=== PATIENT | female | born 1995 | race Caucasian/White ===

== ENCOUNTER 2021-03-31 11:43 | Inpatient (IN) | payer BC ==
[2021-03-31] MEDS ORDERED: TERBUTALINE 1 MG/ML VIAL SQ PRN (12:26)
[2021-03-31] MEDS ORDERED: METHYLERGONOVINE 0.2 MG/ML 1 ML AMP IM PRN (12:26)
[2021-03-31] MEDS ORDERED: OXYTOCIN 10 UNIT/ML 1 ML VIAL IM PRN (12:26)
[2021-03-31] MEDS ORDERED: LIDOCAINE 1% (PF) 10 MG/ML (30 ML SDV) SQ PRN (12:26)
[2021-03-31] MEDS ORDERED: CARBOPROST TROMETHAMINE 250 MCG/ML 1 ML AMP IM PRN (12:26)
[2021-03-31] MEDS ORDERED: LACTATED RINGERS 1,000 ML IV SCH (12:30)
[2021-03-31] MEDS ORDERED: OXYTOCIN 30 UNITS/500 ML NS 30 UNIT in SALINE 1 500ML.BAG IV SCH (12:30)
[2021-03-31] MEDS: LACTATED RINGERS 1,000 ML IV SCH ×3 (12:46→22:26)
[2021-03-31 12:59] LABS: Basophils % (A) 0 %; Eosinophils # (A) 0.1 k/uL (0-0.7); Eosinophils % (A) 1 %; HCT 41.9 % (34.0-46.0); HGB 14.5 gm/dL (11.4-16.0); Lymphocytes # (A) 1.4 k/uL (1.0-4.8); Lymphocytes % (A) 14 %; MCH 30.6 pg (25.0-35.0); MCHC 34.5 g/dL (31.0-37.0); MCV 88.8 fL (80.0-100.0); Mean Platelet Volume 9.2; Monocytes # (A) 0.4 k/uL (0-1.0); Monocytes % (A) 4 %; Neutrophils # (A) 8.1 k/uL (1.3-7.7); Neutrophils % (A) 80 %; Platelet Count 221 k/uL (150-450); RBC 4.72 m/uL (3.80-5.40); RDW 13.2 % (11.5-15.5); WBC 10.2 k/uL (3.8-10.6)
[2021-03-31] MEDS ORDERED: BUTORPHANOL 1 MG/ML 1 ML VIAL IV PRN (13:57)
[2021-03-31] MEDS ORDERED: AMPICILLIN 2,000 MG in SODIUM CHLORIDE 0.9% 100 ML IVPB STA (19:28)
[2021-03-31] MEDS ORDERED: ROPIVACAINE 100 MG, fentaNYL (PF). 200 MCG in SODIUM CHLORIDE 0.9% 76 ML EPIDURAL ONE (22:26)
[2021-04-01] MEDS ORDERED: AMPICILLIN 1,000 MG in SODIUM CHLORIDE 0.9% 50 ML IVPB SCH ×2
[2021-04-01] MEDS ORDERED: ZOLPIDEM 5 MG TAB PO PRN (00:24)
[2021-04-01] MEDS ORDERED: diphenhydrAMINE 50 MG/ML 1 ML VIAL IVP PRN ×2 (00:24)
[2021-04-01] MEDS ORDERED: SIMETHICONE 80 MG CHEWABLE PO PRN (00:24)
[2021-04-01] MEDS ORDERED: HYDROCORTISONE 2.5% RECTAL CREAM 30 GM TUBE RECTAL PRN (00:24)
[2021-04-01] MEDS ORDERED: diphenhydrAMINE 25 MG CAP PO PRN (00:24)
[2021-04-01] MEDS ORDERED: diphenhydrAMINE 50 MG CAP PO PRN (00:24)
[2021-04-01] MEDS ORDERED: LANOLIN CREAM 5 GM TUBE TOPICAL PRN (00:24)
[2021-04-01] MEDS ORDERED: BENZOCAINE/MENTHOL SPRAY 1 GM/SPRAY AEROSOL TOPICAL PRN (00:24)
--- NOTE | 2021-04-01 00:27 | P.HPOB ---
History of Present Illness H&P Date: 03/31/21 Chief Complaint: SROM 25-year-old presents at 37 weeks and 3 days with spontaneous rupture membranes at 8 AM. When she presented her cervix was 1 cm dilated, 70% effaced and -2 station. She is ayan irregularly. heart tones 130 with moderate variability and reactive. Review of Systems All systems: negative Constitutional: Denies chills, Denies fever Eyes: denies blurred vision, denies pain Ears, nose, mouth and throat: Denies headache, Denies sore throat Cardiovascular: Denies chest pain, Denies shortness of breath Respiratory: Denies cough Gastrointestinal: Denies abdominal pain, Denies diarrhea, Denies nausea, Denies vomiting Genitourinary: Denies dysuria, Denies hematuria Musculoskeletal: Denies myalgias Integumentary: Denies pruritus, Denies rash Neurological: Denies numbness, Denies weakness Psychiatric: Denies anxiety, Denies depression Endocrine: Denies fatigue, Denies weight change Past Medical History Past Medical History: No Reported History History of Any Multi-Drug Resistant Organisms: None Reported Past Surgical History: No Surgical Hx Reported Past Anesthesia/Blood Transfusion Reactions: No Reported Reaction Past Psychological History: No Psychological Hx Reported Smoking Status: Never smoker Past Alcohol Use History: None Reported Past Drug Use History: None Reported - Past Family History Mother Family Medical History: No Reported History Medications and Allergies Home Medications Medication Instructions Recorded Confirmed Type Cetirizine HCl [Zyrtec] 10 mg PO DAILY 03/31/21 03/31/21 History Pnv,Calcium 72/Iron/Folic Acid 1 each PO DAILY 03/31/21 03/31/21 History [ Plus Tablet] Allergies Allergy/AdvReac Type Severity Reaction Status Date / Time No Known Allergies Allergy Verified 03/31/21 12:25 Exam Osteopathic Statement: *. No significant issues noted on an osteopathic structural exam other than those noted in the History and Physical/Consult. Vital Signs Temp Pulse Resp BP 03/31/21 12:00 97.6 F 79 16 138/93 Intake and Output 03/31/21 03/31/21 04/01/21 14:59 22:59 06:59 Output Total 3 Balance -3 Output: Emesis 3 Other: # Voids 2 2 Weight 80.286 kg Heart: Regular rate and rhythm Lungs: Clear to auscultation bilaterally Abdomen: Soft, nontender Extremities: Negative Homans sign Results Result Diagrams: 03/31/21 12:47 Abnormal Lab Results - Last 24 Hours (Table) 03/31/21 Range/Units 12:47 Neutrophils # 8.1 H (1.3-7.7) k/uL Assessment and Plan (1) 37 weeks gestation of Current Visit: Yes Status: Acute Code(s): Z3A.37 - 37 WEEKS GESTATION OF SNOMED Code(s): 25822264 (2) Spontaneous rupture of membranes Current Visit: Yes Status: Acute Code(s): CKZ4454 - SNOMED Code(s): 824417595 Plan: 1. Admit to family place 2. Pitocin augmentation if necessary 3. Anticipate normal vaginal delivery
--- NOTE | 2021-04-01 00:29 | P.PROBDLV ---
Vaginal Delivery Note - . Vaginal Delivery Note: 25-year-old presents at 37 weeks and 3 days with spontaneous rupture membranes at 8 AM. When she presented her cervix was 1 cm dilated, 70% effaced and -2 station. She is ayan irregularly. heart tones 130 with moderate variability and reactive. Pitocin augmentation was started the patient slowly progressed throughout the day. She was uncomfortable by around 8 PM and requested an epidural. Her cervix was completely dilated at 2323. She pushed, delivered a viable male over intact perineum under epidural anesthesia at 0009. Head delivered OA, anterior shoulder delivered with gentle guidance pelvic posterior shoulder and rest of body. Nose and mouth bulb suctioned, cord clamped and cut, infant placed mother's abdomen. Apgars 9, 9, weight 5 lbs. 13 oz. Placenta delivered spontaneously, intact with three-vessel cord at 0011. V agina, cervix, perineum inspected. Second-degree midline laceration was repaired with 3-0 Vicryl. Estimated blood loss 200 mL. Mother and baby in stable condition.
[2021-04-01] MEDS ORDERED: OXYTOCIN 30 UNITS/500 ML NS 30 UNIT in SALINE 1 500ML.BAG IV SCH (00:30)
[2021-04-01] MEDS: IBUPROFEN 600 MG TAB PO PRN ×3 (01:10→19:57)
[2021-04-01] MEDS: ACETAMINOPHEN TAB 325 MG TAB PO PRN ×2 (05:48→17:05)
[2021-04-01] MEDS: SENNOSIDES-DOCUSATE SODIUM 1 EACH TAB PO SCH ×2 (14:53→19:57)
[2021-04-02] MEDS: IBUPROFEN 600 MG TAB PO PRN ×2 (05:28→12:05)
[2021-04-02 07:51] LABS: Basophils % (A) 0 %; Eosinophils # (A) 0.1 k/uL (0-0.7); Eosinophils % (A) 1 %; HCT 34.4 % (34.0-46.0); Lymphocytes % (A) 19 %; MCH 30.3 pg (25.0-35.0); MCHC 33.1 g/dL (31.0-37.0); MCV 91.6 fL (80.0-100.0); Mean Platelet Volume 8.9; Monocytes # (A) 0.6 k/uL (0-1.0); Monocytes % (A) 5 %; Neutrophils # (A) 7.6 k/uL (1.3-7.7); Neutrophils % (A) 73 %; Platelet Count 187 k/uL (150-450); RBC 3.75 m/uL (3.80-5.40); RDW 13.8 % (11.5-15.5); WBC 10.3 k/uL (3.8-10.6)
[2021-04-02 08:15] LABS: HGB 11.4 gm/dL (11.4-16.0)
[2021-04-02] MEDS: SENNOSIDES-DOCUSATE SODIUM 1 EACH TAB PO SCH (09:10)
[2021-04-02 10:03] VITALS: BP 116/66; PULSE 74; RESP 16; TEMP 97.1
--- NOTE | 2021-04-03 08:24 | P.DS ---
Providers Date of admission: 03/31/21 12:08 Expected date of discharge: 04/02/21 Attending physician: Roxana Nation Primary care physician: Stated None - Discharge Diagnosis(es) (1) 37 weeks gestation of Status: Resolved (2) Spontaneous rupture of membranes Status: Resolved (3) Normal vaginal delivery Status: Acute Hospital Course: Patient presented with spontaneous rupture membranes. She underwent a normal vaginal delivery. course was uncomplicated. She denies nausea, vomiting, chest pain, shortness of breath or calf pain. She is discharged home day #1 in stable condition to follow-up with me in 6 weeks. Patient Condition at Discharge: Good Plan - Discharge Summary New Discharge Prescriptions: New Ibuprofen [Motrin] 600 mg PO Q6HR PRN #30 tab PRN Reason: Mild Pain Or Fever >= 100.5 No Action Cetirizine HCl [Zyrtec] 10 mg PO DAILY Pnv,Calcium 72/Iron/Folic Acid [ Plus Tablet] 1 each PO DAILY Discharge Medication List Cetirizine HCl [Zyrtec] 10 mg PO DAILY 03/31/21 [History] Pnv,Calcium 72/Iron/Folic Acid [ Plus Tablet] 1 each PO DAILY 03/31/21 [History] Ibuprofen [Motrin] 600 mg PO Q6HR PRN #30 tab 04/02/21 [Rx] Follow up Appointment(s)/Referral(s): Roxana Nation DO [Doctor of Osteopathic Medicine] - 6 Weeks Discharge Disposition: HOME SELF-CARE
== END 2021-04-02 12:05 | disposition home or self-care (01) | DRG 807 ==
LOC: FBPOP 11:43 → 4FBP 12:08
PROVIDERS: ADMIT Obstetrics & Gynecology; ATTEND Obstetrics & Gynecology
PROC: 10E0XZZ Delivery of Products of Conception, External Approach (ICD-10-PCS; principal; 2021-04-01)
PROC: 0KQM0ZZ Repair Perineum Muscle, Open Approach (ICD-10-PCS; 2021-04-01)
PROC: 4A0HXCZ Measurement of Products of Conception, Cardiac Rate, External Approach (ICD-10-PCS; 2021-04-01)
PROC: 3E033VJ Introduction of Other Hormone into Peripheral Vein, Percutaneous Approach (ICD-10-PCS; 2021-04-01)
DX: O70.1 Second degree perineal laceration during delivery (principal); Z37.0 Single live birth; Z3A.37 37 weeks gestation of pregnancy
CPT/HCPCS: 59025; 84112; 85025; 86850; 86900; 86901; 99203

== ENCOUNTER 2022-06-07 14:29 | Inpatient (IN) | payer BC ==
[2022-06-07 15:56] VITALS: RESP 16
[2022-06-07] MEDS ORDERED: diphenhydrAMINE 50 MG/ML 1 ML VIAL IVP PRN ×2 (16:32)
[2022-06-07] MEDS ORDERED: diphenhydrAMINE 50 MG CAP PO PRN (16:32)
[2022-06-07] MEDS ORDERED: HYDROCORTISONE 2.5% RECTAL CREAM 30 GM TUBE RECTAL PRN (16:32)
[2022-06-07] MEDS ORDERED: ZOLPIDEM 5 MG TAB PO PRN (16:32)
[2022-06-07] MEDS ORDERED: LANOLIN CREAM 5 GM TUBE TOPICAL PRN (16:32)
[2022-06-07] MEDS ORDERED: ACETAMINOPHEN TAB 325 MG TAB PO PRN (16:32)
[2022-06-07] MEDS ORDERED: SIMETHICONE 80 MG CHEWABLE PO PRN (16:32)
[2022-06-07] MEDS ORDERED: BENZOCAINE/MENTHOL SPRAY 1 GM/SPRAY AEROSOL TOPICAL PRN (16:32)
[2022-06-07] MEDS ORDERED: diphenhydrAMINE 25 MG CAP PO PRN (16:32)
[2022-06-07 16:42] LABS: Basophils % (A) 0 %; Eosinophils % (A) 0 %; HCT 42.5 % (34.0-46.0); HGB 14.6 gm/dL (11.4-16.0); Lymphocytes # (A) 1.5 k/uL (1.0-4.8); Lymphocytes % (A) 12 %; MCHC 34.4 g/dL (31.0-37.0); MCV 87.3 fL (80.0-100.0); Monocytes # (A) 0.6 k/uL (0-1.0); Monocytes % (A) 5 %; Neutrophils # (A) 10.1 k/uL (1.3-7.7); Neutrophils % (A) 81 %; Platelet Count 205 k/uL (150-450); RBC 4.87 m/uL (3.80-5.40); RDW 14.1 % (11.5-15.5); WBC 12.4 k/uL (3.8-10.6)
[2022-06-07] MEDS ORDERED: OXYTOCIN 30 UNITS/500 ML NS 30 UNIT in SALINE 1 500ML.BAG IV SCH (16:45)
[2022-06-07] MEDS: IBUPROFEN 600 MG TAB PO SCH ×2 (17:01→22:43)
[2022-06-07] MEDS ORDERED: TRANEXAMIC ACID IN NACL,ISO-OS 1,000 MG in EMPTY BAG 1 BAG IV PRN ×2 (17:02→17:23)
[2022-06-07] MEDS ORDERED: TERBUTALINE 1 MG/ML VIAL SQ PRN ×2 (17:02→17:23)
[2022-06-07] MEDS ORDERED: miSOPROStoL 200 MCG TAB PO PRN ×2 (17:02→17:23)
[2022-06-07] MEDS: LACTATED RINGERS 1,000 ML IV SCH (17:22)
[2022-06-07] MEDS ORDERED: OXYTOCIN 10 UNIT/ML 1 ML VIAL IM PRN (17:23)
[2022-06-07] MEDS ORDERED: LIDOCAINE 0.5% (PF) 5 MG/ML (50 ML SDV) SQ PRN (17:23)
[2022-06-07] MEDS ORDERED: CARBOPROST TROMETHAMINE 250 MCG/ML 1 ML AMP IM PRN (17:23)
[2022-06-07] MEDS ORDERED: METHYLERGONOVINE 0.2 MG/ML 1 ML AMP IM PRN (17:23)
[2022-06-07] MEDS ORDERED: LACTATED RINGERS 1,000 ML IV SCH (17:30)
--- NOTE | 2022-06-07 17:58 | P.HPOB ---
History of Present Illness H&P Date: 06/07/22 Chief Complaint: Contractions This is a 26-year-old female 2 para 1 with an estimated date of confinement of 06/06/2022, estimated gestational age of 40 and one sevenths weeks, who presented to labor and delivery with complaints of contractions that began approximately 6 AM this morning but became strong in the last hour or so. She denied any rupture of membranes. care has been with Dr. Nation and has been uncomplicated per patient. Upon arrival, she is found to be completely dilated with bulging bag. labs: Group B streptococcus-negative Pap smear-within normal limits GC/chlamydia/Trichomonas-negative One hour Glucola-117 Toxoplasma-negative Hepatitis C antibody-negative Random glucose-78 Hepatitis B surface antigen-negative RPR-nonreactive Rubella-immune Blood type-O+ Antibody screen-negative HIV-nonreactive Hemoglobin-14.4 Obstetrical history: . History of 1 vaginal delivery at term with weight of 5 lbs. 13 oz. Gynecologic history: No history of sexual transmitted diseases. Review of Systems Constitutional: Denies chills, Denies fever Eyes: denies blurred vision, denies pain Ears, nose, mouth and throat: Denies headache, Denies sore throat Cardiovascular: Denies chest pain, Denies shortness of breath Respiratory: Denies cough Gastrointestinal: Reports abdominal pain (Contractions) Genitourinary: Reports pelvic pain, Reports Musculoskeletal: Reports low back pain Integumentary: Denies pruritus, Denies rash Neurological: Denies numbness, Denies weakness Psychiatric: Denies anxiety, Denies depression Past Medical History Past Medical History: No Reported History History of Any Multi-Drug Resistant Organisms: None Reported Past Surgical History: No Surgical Hx Reported Past Anesthesia/Blood Transfusion Reactions: No Reported Reaction Past Psychological History: No Psychological Hx Reported Smoking Status: Former smoker Past Alcohol Use History: None Reported Past Drug Use History: None Reported - Past Family History Mother Family Medical History: No Reported History Medications and Allergies Home Medications Medication Instructions Recorded Confirmed Type Cetirizine HCl [Zyrtec] 10 mg PO DAILY 03/31/21 06/07/22 History Vit No.180/Iron/Folic 1 each PO DAILY 03/31/21 06/07/22 History [ Plus Tablet] Allergies Allergy/AdvReac Type Severity Reaction Status Date / Time No Known Allergies Allergy Verified 03/31/21 12:25 Exam Osteopathic Statement: *. No significant issues noted on an osteopathic structural exam other than those noted in the History and Physical/Consult. Vital Signs Temp Pulse Resp BP Pulse Ox 06/07/22 17:44 87 16 117/72 06/07/22 17:14 75 16 117/71 06/07/22 16:14 87 16 131/81 06/07/22 16:00 80 16 130/65 06/07/22 15:47 85 16 129/64 06/07/22 15:32 100 16 123/68 06/07/22 15:00 97.4 F L 100 16 130/65 100 Intake and Output 06/07/22 06/07/22 06/07/22 06:59 14:59 22:59 Output Total 250 Balance -250 Output: Estimated Blood Loss 250 Other: Weight 81.647 kg HEENT: Within normal limits Heart: Regular rate and rhythm Lungs: Clear to auscultation bilaterally Abdomen: heart tones: Reactive, category 1 Contractions: Every couple minutes Cervix: Bulging bag of water with complete dilation. Artificial rupture membranes is carried out with a large amount of clear fluid. Extremities: Negative Homans Results Result Diagrams: 06/07/22 16:49 Abnormal Lab Results - Last 24 Hours (Table) 06/07/22 Range/Units 16:49 WBC 12.4 H (3.8-10.6) k/uL Neutrophils # 10.1 H (1.3-7.7) k/uL Assessment and Plan (1) 40 weeks gestation of Current Visit: Yes Status: Acute Code(s): Z3A.40 - 40 WEEKS GESTATION OF SNOMED Code(s): 55690430 Plan: Admission for active labor. Imminent delivery. Expectant management.
--- NOTE | 2022-06-07 18:01 | P.PROBDLV ---
Vaginal Delivery Note - . Vaginal Delivery Note: The patient presented in active labor with bulging bag of water. Artificial rupture membranes is carried out with clear fluid noted. Shortly after that she began pushing and pushed for a couple pushes. Infant's head came to a crown. With one further push, the infant's head delivered across the perineum in a right occiput posterior lie. With one further push, the remainder the easily delivered and was placed on mother's abdomen. Nose and mouth were bulb suctioned. Cord was clamped and cut and was taken to warmer for evaluation. A viable female was noted with scores of 9 at 1 minute and 9 at 5 minutes and weight was 7 lbs. 4 oz. Placenta delivered shortly thereafter, intact, with a three-vessel cord. Uterus contracted fairly well after oxytocin was given and uterine massage was carried out. Inspection of the perineum revealed bilateral vaginal sulcus tears with a second-degree perineal laceration. These areas were anesthetized with 1% lidocaine and then each vaginal sulcus was sutured with 3-0 Vicryl suture in a running locked fashion up to the introitus. 2-0 Vicryl suture was then used to repair the deeper layer of the second-degree and then 3-0 Vicryl was continued in a running fashion to the apex of the cut and then brought up along the skin in a subcuticular fashion and tied at the introitus. Good hemostasis was noted. All sponge and needle counts are correct. Estimated blood loss is approximately 200 mL's. Both mother and are in stable condition.
[2022-06-08 00:16] VITALS: PULSE 99
[2022-06-08] MEDS: IBUPROFEN 600 MG TAB PO SCH ×2 (05:44→12:01)
[2022-06-08] MEDS: LACTATED RINGERS 1,000 ML IV SCH (06:27)
[2022-06-08] MEDS: SENNOSIDES-DOCUSATE SODIUM 1 EACH TAB PO SCH ×2 (06:27→12:01)
[2022-06-08 07:37] LABS: Basophils % (A) 0 %; Eosinophils # (A) 0.1 k/uL (0-0.7); Eosinophils % (A) 1 %; HCT 35.1 % (34.0-46.0); HGB 12.1 gm/dL (11.4-16.0); Lymphocytes # (A) 2.2 k/uL (1.0-4.8); Lymphocytes % (A) 17 %; MCH 30.6 pg (25.0-35.0); MCHC 34.4 g/dL (31.0-37.0); MCV 88.9 fL (80.0-100.0); Mean Platelet Volume 8.9; Monocytes # (A) 0.7 k/uL (0-1.0); Monocytes % (A) 6 %; Neutrophils # (A) 9.5 k/uL (1.3-7.7); Neutrophils % (A) 75 %; Platelet Count 176 k/uL (150-450); RBC 3.95 m/uL (3.80-5.40); RDW 14.3 % (11.5-15.5); WBC 12.7 k/uL (3.8-10.6)
[2022-06-08 09:09] VITALS: BP 129/85; TEMP 97.6
--- NOTE | 2022-06-08 10:27 | P.DS ---
Providers Date of admission: 06/07/22 14:42 Expected date of discharge: 06/08/22 Attending physician: Roxana Nation Primary care physician: Stated None - Discharge Diagnosis(es) (1) 40 weeks gestation of Current Visit: Yes Status: Acute Hospital Course: This is a 26-year-old female 2 para 1 at 40 and one sevenths weeks who presented in active labor. She delivered vaginally a viable female infant with scores of 9 at 1 minute and 9 at 5 minutes and infant weight of 7 lbs. 4 oz. Her course has been uncomplicated. Lochia has been decreasing. Pain is well-controlled. Vital signs are stable. Abdomen is soft with fundus firm and nontender. Extremities show negative Homans. Impression is status post vaginal delivery day #1. Plan is to discharge home today. Routine instructions are given. She is advised to follow up in the office in 6 weeks for check. She is advised to call the office if she has any further questions or concerns prior to her appointment time. She will be given a prescription for ibuprofen. She has a breast pump at home. Procedures: Spontaneous vaginal delivery of a viable female infant on 06/07/2022 Patient Condition at Discharge: Stable Plan - Discharge Summary New Discharge Prescriptions: New Ibuprofen [Motrin] 600 mg PO Q6H #60 tab Continue Cetirizine HCl [Zyrtec] 10 mg PO DAILY Vit No.180/Iron/Folic [ Plus Vitamin-Mineral] 1 each PO DAILY Discharge Medication List Cetirizine HCl [Zyrtec] 10 mg PO DAILY 03/31/21 [History] Vit No.180/Iron/Folic [ Plus Vitamin-Mineral] 1 each PO DAILY 03/31/21 [History] Ibuprofen [Motrin] 600 mg PO Q6H #60 tab 06/08/22 [Rx] Follow up Appointment(s)/Referral(s): Roxana Nation DO [Doctor of Osteopathic Medicine] - 6 Weeks Activity/Diet/Wound Care/Special Instructions: Instructions 1. Do not begin any exercise program for 3 weeks. 2. Do not resume sexual relations for 3 weeks or longer if uncomfortable. 3. You may take tub baths or showers at any time. 4. You may use tampons if desired after 3 weeks. 5. Keep the area of episiotomy (stitches) clean and dry. 6. If you are not nursing, wear a good fitting, supportive bra during the day and limit fluid intake for at least 1 week to prevent breast engorgement. 7. Call the office, [phone], within the next week to make appointment for your 6 week checkup if it has not already been made. 8. Report any of the following occurrences to the doctor promptly: a. Heavy, excessive bleeding b. Chills, fever c. Burning or frequency of urination d. Pain or redness and breasts if nursing e. Increasing pain or swelling in episiotomy (stitches). In addition to the above instructions, the following additional should be followed: 1. No heavy lifting or straining (exercising) until after 6 week checkup. 2. Keep abdominal incision clean and dry: You may wear a dressing if more comfortable. 3. Make office appointment for 10 days after going home or as instructed by her doctor. Discharge Disposition: HOME SELF-CARE
== END 2022-06-08 15:55 | disposition home or self-care (01) | DRG 807 ==
LOC: FBPOP 14:29 → 4FBP 14:42
PROVIDERS: ADMIT Obstetrics & Gynecology; ATTEND Obstetrics & Gynecology
PROC: 10E0XZZ Delivery of Products of Conception, External Approach (ICD-10-PCS; principal; 2022-06-07)
PROC: 0KQM0ZZ Repair Perineum Muscle, Open Approach (ICD-10-PCS; 2022-06-07)
PROC: 10907ZC Drainage of Amniotic Fluid, Therapeutic from Products of Conception, Via Natural or Artificial Opening (ICD-10-PCS; 2022-06-07)
DX: O70.1 Second degree perineal laceration during delivery (principal); Z37.0 Single live birth; Z87.891 Personal history of nicotine dependence; Z3A.40 40 weeks gestation of pregnancy
CPT/HCPCS: 85025; 86850; 86900; 86901